=== PATIENT | male | born 1945 | race Caucasian/White ===

== ENCOUNTER 2021-12-03 09:47 | Inpatient (IN) ==
[2021-12-03] MEDS ORDERED: HYDROmorphone 1 MG/1 ML SYRINGE IV PRN (11:26)
[2021-12-03] MEDS ORDERED: ONDANSETRON 4 MG/2 ML VIAL IV PRN (11:26)
[2021-12-03] MEDS ORDERED: NITROGLYCERIN SL 0.4 MG TABLET SL PRN (11:28)
[2021-12-03] MEDS ORDERED: PRAVASTATIN 40 MG TABLET PO SCH (11:30)
[2021-12-03 14:03] LABS: Basophils # 0.1 10*3/uL (0.0-0.2); Basophils % 0.6 % (0.0-0.8); Eosinophils # 0.3 10*3/uL (0.0-0.87); Eosinophils % 3.8 % (0.00-10.9); Hematocrit 36.5 VOL% (42.0-52.0); Hemoglobin 12.5 GM/DL (14.0-18.0); Immature Granulocytes % 0.4 %; Immature Granulocytes Absolute 0.03 #; Lymphocytes # 1.2 10*3/uL (1.4-4.0); Lymphocytes % 14.5 % (21.2-54.2); Mean Corpuscular HGB Conc 34.2 GM/DL (32-36); Mean Corpuscular Volume 92.4 FL (87-102); Mean Platelet Volume 10.3 FL (9.6-12.0); Monocytes % 9.9 % (1.7-12.7); Neutrophils % 70.8 % (38.7-73.9); Platelet Count 138 T/CUMM (130-400); Red Blood Count 3.95 MC/CUMM (3.8-5.5); White Blood Count 8.2 T/CUMM (4-12)
[2021-12-03 14:17] LABS: Albumin 3.4 G/DL (3.4-5.0); Bilirubin,Total 0.9 MG/DL (0.20-1.00); Osmolality,Calculated 278.5 MOS/KG (273-304); Potassium 3.6 MMOL/L (3.5-5.1); Total Protein 6.7 G/DL (6.4-8.2)
[2021-12-03] MEDS: carvediloL 25 MG TABLET PO SCH (20:48)
[2021-12-03] MEDS: ACETAMINOPHEN 325 MG TABLET PO PRN (20:50)
[2021-12-03] MEDS: NON-FORMULARY MEDICATION (Glucosam-Chon-Msm1-C-Mang-Bosw [Osteo Bi-Flex Triple Strength] 7 PO SCH (20:51)
[2021-12-04] MEDS: ZINC GLUCONATE 50 MG TABLET PO SCH (09:40)
[2021-12-04] MEDS: MULTIVITAMIN (OCUVITE) TABLET PO SCH (09:40)
[2021-12-04] MEDS: ASPIRIN EC 81 MG TABLET PO SCH (09:40)
[2021-12-04] MEDS: lisinopriL 20 MG TABLET PO SCH (09:40)
[2021-12-04] MEDS: carvediloL 25 MG TABLET PO SCH ×2 (09:40→22:26)
[2021-12-04] MEDS: NON-FORMULARY MEDICATION (Glucosam-Chon-Msm1-C-Mang-Bosw [Osteo Bi-Flex Triple Strength] 7 PO SCH ×2 (09:41→22:29)
[2021-12-04] MEDS: ISOSORBIDE MONONITRATE 30 MG TABLET PO SCH (09:41)
[2021-12-04] MEDS: PANTOPRAZOLE 40 MG TABLET PO SCH (09:41)
[2021-12-04] MEDS ORDERED: LIDOCAINE 1%/EPI INJ 20 ML VIAL ONE (11:44)
[2021-12-04] MEDS ORDERED: BUPIVACAINE MPF 0.25% 30 ML VIAL ONE (11:44)
[2021-12-04] MEDS: ACETAMINOPHEN 325 MG TABLET PO PRN ×2 (13:28→22:27)
[2021-12-05] MEDS: PANTOPRAZOLE 40 MG TABLET PO SCH (08:11)
[2021-12-05] MEDS: ZINC GLUCONATE 50 MG TABLET PO SCH (08:11)
[2021-12-05] MEDS: ISOSORBIDE MONONITRATE 30 MG TABLET PO SCH (08:11)
[2021-12-05] MEDS: carvediloL 25 MG TABLET PO SCH ×2 (08:11→18:11)
[2021-12-05] MEDS: hydroCHLOROthiazide 12.5 MG CAPSULE PO SCH (08:11)
[2021-12-05] MEDS: ASPIRIN EC 81 MG TABLET PO SCH (08:11)
[2021-12-05] MEDS: lisinopriL 20 MG TABLET PO SCH (08:11)
[2021-12-05] MEDS: MULTIVITAMIN (OCUVITE) TABLET PO SCH (08:11)
[2021-12-05] MEDS: ACETAMINOPHEN 325 MG TABLET PO PRN ×3 (08:11→18:11)
[2021-12-05 08:44] LABS: Basophils # 0.1 10*3/uL (0.0-0.2); Basophils % 0.7 % (0.0-0.8); Eosinophils # 0.4 10*3/uL (0.0-0.87); Eosinophils % 5.1 % (0.00-10.9); Hematocrit 36.2 VOL% (42.0-52.0); Hemoglobin 12.4 GM/DL (14.0-18.0); Immature Granulocytes % 0.4 %; Immature Granulocytes Absolute 0.03 #; Lymphocytes # 1.4 10*3/uL (1.4-4.0); Lymphocytes % 20.3 % (21.2-54.2); Mean Corpuscular HGB Conc 34.3 GM/DL (32-36); Mean Corpuscular Volume 92.6 FL (87-102); Mean Platelet Volume 9.5 FL (9.6-12.0); Monocytes % 9.7 % (1.7-12.7); Neutrophils % 63.8 % (38.7-73.9); Platelet Count 128 T/CUMM (130-400); Red Blood Count 3.91 MC/CUMM (3.8-5.5); Red Cell Distribution Width 14.1 % (9.3-17.3); White Blood Count 7.1 T/CUMM (4-12)
[2021-12-05] MEDS ORDERED: ENOXAPARIN 40 MG/0.4 ML SYRINGE SUBCUT SCH (09:00)
[2021-12-05 09:02] LABS: Osmolality,Calculated 281.4 MOS/KG (273-304); Potassium 3.5 MMOL/L (3.5-5.1)
[2021-12-05] MEDS: NON-FORMULARY MEDICATION (Glucosam-Chon-Msm1-C-Mang-Bosw [Osteo Bi-Flex Triple Strength] 7 PO SCH ×2 (09:45→21:50)
[2021-12-05] MEDS ORDERED: HYDROmorphone 1 MG/1 ML SYRINGE IV PRN ×2 (10:05)
[2021-12-05] MEDS: CLOPIDOGREL 75 MG TABLET PO SCH (11:18)
[2021-12-06] MEDS: ACETAMINOPHEN 325 MG TABLET PO PRN ×4 (00:04→19:33)
[2021-12-06] MEDS ORDERED: DEXTROSE 10% 250 ML IV ONE (07:44)
[2021-12-06] MEDS: NON-FORMULARY MEDICATION (Glucosam-Chon-Msm1-C-Mang-Bosw [Osteo Bi-Flex Triple Strength] 7 PO SCH ×2 (09:38→22:52)
[2021-12-06] MEDS: ASPIRIN EC 81 MG TABLET PO SCH (09:40)
[2021-12-06] MEDS: MULTIVITAMIN (OCUVITE) TABLET PO SCH (09:40)
[2021-12-06] MEDS: ISOSORBIDE MONONITRATE 30 MG TABLET PO SCH (09:40)
[2021-12-06] MEDS: CLOPIDOGREL 75 MG TABLET PO SCH (09:40)
[2021-12-06] MEDS: carvediloL 25 MG TABLET PO SCH ×2 (09:40→16:52)
[2021-12-06] MEDS: lisinopriL 20 MG TABLET PO SCH (09:40)
[2021-12-06] MEDS: ZINC GLUCONATE 50 MG TABLET PO SCH (09:40)
[2021-12-06] MEDS: PANTOPRAZOLE 40 MG TABLET PO SCH (09:40)
[2021-12-07] MEDS: ACETAMINOPHEN 325 MG TABLET PO PRN ×3 (03:50→17:52)
[2021-12-07] MEDS: lisinopriL 20 MG TABLET PO SCH (08:55)
[2021-12-07] MEDS: ASPIRIN EC 81 MG TABLET PO SCH (08:55)
[2021-12-07] MEDS: ZINC GLUCONATE 50 MG TABLET PO SCH (08:55)
[2021-12-07] MEDS: CLOPIDOGREL 75 MG TABLET PO SCH (08:55)
[2021-12-07] MEDS: hydroCHLOROthiazide 12.5 MG CAPSULE PO SCH (08:55)
[2021-12-07] MEDS: MULTIVITAMIN (OCUVITE) TABLET PO SCH (08:55)
[2021-12-07] MEDS: PANTOPRAZOLE 40 MG TABLET PO SCH (08:56)
[2021-12-07] MEDS: carvediloL 25 MG TABLET PO SCH ×2 (08:56→17:30)
[2021-12-07] MEDS: ISOSORBIDE MONONITRATE 30 MG TABLET PO SCH (08:56)
[2021-12-07] MEDS: NON-FORMULARY MEDICATION (Glucosam-Chon-Msm1-C-Mang-Bosw [Osteo Bi-Flex Triple Strength] 7 PO SCH ×2 (09:20→23:41)
[2021-12-08] MEDS: MULTIVITAMIN (OCUVITE) TABLET PO SCH (08:36)
[2021-12-08] MEDS: carvediloL 25 MG TABLET PO SCH (08:36)
[2021-12-08] MEDS: ZINC GLUCONATE 50 MG TABLET PO SCH (08:36)
[2021-12-08] MEDS: ISOSORBIDE MONONITRATE 30 MG TABLET PO SCH (08:36)
[2021-12-08] MEDS: CLOPIDOGREL 75 MG TABLET PO SCH (08:36)
[2021-12-08] MEDS: PANTOPRAZOLE 40 MG TABLET PO SCH (08:36)
[2021-12-08] MEDS: ASPIRIN EC 81 MG TABLET PO SCH (08:36)
[2021-12-08] MEDS: lisinopriL 20 MG TABLET PO SCH (08:37)
[2021-12-08] MEDS: ACETAMINOPHEN 325 MG TABLET PO PRN (08:43)
[2021-12-08] MEDS: NON-FORMULARY MEDICATION (Glucosam-Chon-Msm1-C-Mang-Bosw [Osteo Bi-Flex Triple Strength] 7 PO SCH (09:24)
[2021-12-08 11:28] VITALS: BP 129/78
== END 2021-12-08 13:46 | disposition home health service (06) | DRG 964 ==
LOC: N.3E 09:47 → N.ED 09:47 → N.3E 12:43
PROVIDERS: ADMIT Surgery; ATTEND Surgery